=== PATIENT | female | born 1990 | race Caucasian/White ===

== ENCOUNTER 2020-09-07 18:55 | Emergency (ER) | payer BC ==
[2020-09-07] MEDS ORDERED: Tetracaine HCl/PF 0.5% 4 ML Bottle EYERT ONE (19:53)
--- NOTE | 2020-09-07 19:55 | EDM.PDOC ---
ED HPI GENERAL MEDICAL PROBLEM - General Chief Complaint: Eye Problems Stated Complaint: RIGHT EYE PROBLEM Time Seen by Provider: 09/07/20 19:49 - History of Present Illness INITIAL COMMENTS - FREE TEXT/NARRATIVE: 30-year-old female who last night was working in a barn and felt a piece of a blow into her eye she has had worsening tearing and right eye irritation since that time she is tried to wash out the eye but still feels like something is stuck in the eye. She feels like it is more high and in the lateral aspect of the globe she denies blurry vision or double vision symptoms constant stable no exacerbating or alleviating factors radiation or other associated symptoms. Right Eye Pain Score (Numeric/FACES): 3 - Related Data Allergies Allergy/AdvReac Type Severity Reaction Status Date / Time No Known Allergies Allergy Verified 09/07/20 19:34 Home Meds: Home Meds . [No Known Home Meds] 09/07/20 [History] Past Medical History Psychiatric History: Reports: Anxiety - Past Surgical History HEENT Surgical History: Reports: Tonsillectomy Social & Family History - Family History Family Medical History: Noncontributory - Tobacco Use Smoking Status *Q: Never Smoker Second Hand Smoke Exposure: No - Caffeine Use Caffeine Use: Reports: None - Recreational Drug Use Recreational Drug Use: Yes Drug Use in Last 12 Months: Yes Recreational Drug Type: Reports: Marijuana/Hashish Recreational Drug Use Frequency: Socially ED ROS GENERAL - Review of Systems Review Of Systems: See Below Free Text/Narrative/Comment: General: No fever. Skin: Eyelid irritation Eyes: Per HPI ENT: No sore throat. Musculoskeletal: No myalgias/arthralgias. Neurologic: No headache. ED EXAM GENERAL W FULL EYE - Physical Exam Exam: See Below Text/Narrative:: General Appearance: No acute distress, appears comfortable Skin: No rash HEENT: Normocephalic/atraumatic, sclera anicteric, mucous membranes moist, right eye blepharitis particularly of the lower lid significant conjunctival injecti on no foreign body on immediate cursory inspection Neck: Normal range of motion Musculoskeletal: No edema or tenderness Neurologic: Awake, alert, no obvious deficits, moving all extremities Psychiatric: Appropriate, cooperative Course - Vital Signs Last Recorded V/S: Last Vital Signs Temp 97.6 F 09/07/20 19:28 Pulse 62 09/07/20 19:28 Resp 14 09/07/20 19:28 BP 123/73 09/07/20 19:28 Pulse Ox 100 09/07/20 19:28 - Orders/Labs/Meds Meds: Medications Discontinued Medications Generic Name Dose Route Start Last Admin Trade Name Toby PRN Reason Stop Dose Admin Fluorescein Sodium 1 mg 09/07/20 20:07 Ful-Bela EYERT 09/07/20 20:08 ONETIME ONE Tetracaine HCl 1 ml 09/07/20 19:53 Tetracaine 0.5% Steri-Unit Adrienne EYERT 09/07/20 19:54 ASDIRECTED ONE Departure - Departure Time of Disposition: 20:16 Disposition: Home, Self-Care 01 Condition: Good Clinical Impression: Conjunctivitis - Discharge Information *PRESCRIPTION DRUG MONITORING PROGRAM REVIEWED*: Not Applicable *COPY OF PRESCRIPTION DRUG MONITORING REPORT IN PATIENT MOJGAN: Not Applicable Instructions: Eye Foreign Body, [id number] Referrals: Omid High MD [Ordering Only Provider] - 2 Days Forms: ED Department Discharge Additional Instructions: You likely have a mild conjunctivitis and blepharitis related to the hay that was previously retained in your eye. However, I do not see any evidence of foreign body remaining in your eye. I encourage you to use normal saline or artificial tears to help keep the eye moist I encourage you to follow-up with the accounting instructor on Wednesday if your symptoms have not resolved. Sepsis Event Note (ED) - Evaluation Sepsis Screening Result: No Definite Risk - Focused Exam Vital Signs: Vital Signs Temp Pulse Resp BP Pulse Ox 09/07/20 19:28 97.6 F 62 14 123/73 100 - Assessment/Plan Assessment:: 30-year-old female presenting with retained ocular foreign body versus corneal abrasion tetracaine ordered and will gagandeep lids and more closely inspected patient will also need staining. On close eye exam pupils are PERRLA extraocular movements are intact and painless anterior chamber appears normal there is no sign of retained foreign body on close inspection including lid inversion. There is no focal uptake on fluorescein staining This exam is most consistent with a conjunctivitis related to the prior retained foreign body. Patient instructed to use artificial tears no indication for antibiotics at this time return precautions discussed and understood and if patient symptoms have not resolved by Wednesday she will follow-up with ophthalmology.
[2020-09-07] MEDS ORDERED: Fluorescein 1 MG Ophth Strip EYERT ONE (20:07)
== END 2020-09-07 20:30 | disposition home or self-care (01) ==
LOC: MW.ED 18:55
DX: H10.9 Unspecified conjunctivitis (principal)
CPT/HCPCS: 99283